=== PATIENT | male | born 1995 | race Caucasian/White ===

== ENCOUNTER 2019-07-21 22:55 | Emergency (ER) | payer SELFPAY ==
[~2019-07-21] VITALS: Ht 182.9 cm; Wt 77.0 kg
[2019-07-21 23:30] VITALS: BP 117/68
== END 2019-07-21 23:52 | disposition home or self-care (01) ==
LOC: ER 22:59
DX: T40.601A Poisoning by unspecified narcotics, accidental (unintentional), initial encounter (principal); G93.40 Encephalopathy, unspecified; F17.200 Nicotine dependence, unspecified, uncomplicated; F11.10 Opioid abuse, uncomplicated; Y92.89 Other specified places as the place of occurrence of the external cause
CPT/HCPCS: 99283; Z7610

== ENCOUNTER 2019-07-25 12:14 | Emergency (ER) | payer SELFPAY ==
[~2019-07-25] VITALS: Ht 177.8 cm; Wt 77.0 kg
[2019-07-25] MEDS ORDERED: SODIUM CHLORIDE 0.9% 1,000 ML IV ONE (12:48)
[2019-07-25] MEDS ORDERED: ONDANSETRON HCL 4MG/2ML INJ IV STA (12:48)
[2019-07-25] MEDS ORDERED: KETOROLAC 30MG/ML VIAL IV STA (12:48)
[2019-07-25 12:55] LABS: BASOPHILS % 0.1 % (0.0-2.0); EOSINOPHILS % 0.1 % (0.0-5.0); HEMATOCRIT. 46.7 % (42.0-52.0); HEMOGLOBIN. 15.6 g/dL (14.0-18.0); LYMPHOCYTES % 7.1 % (20.0-50.0); MEAN CORPUSCULAR HEMOGLOBIN 30.7 pg (28.0-32.0); MEAN CORPUSCULAR VOLUME 91.8 fL (80.0-94.0); MEAN PLATELET VOLUME 7.1 fl (7.4-10.4); MONOCYTES % 6.1 % (2.0-8.0); NEUTROPHILS % 86.6 % (40.0-76.0); PLATELET 220 x1000/uL (130-400); RED BLOOD CELL COUNT 5.08 mill/uL (4.7-6.1); RED CELL DISTRIBUTION WIDTH 13.3 % (11.6-14.6)
[2019-07-25 13:01] LABS: CHLORIDE 104 mEq/L (98-107)
[2019-07-25 13:05] LABS: ETHANOL BLOOD < 10 mg/dL
[2019-07-25 15:21] LABS: *AMPHETAMINES SCREEN URINE NEGATIVE (NEGATIVE); CANNABINOID URINE SCREEN NEGATIVE (NEGATIVE); METHADONE URINE SCREEN NEGATIVE (NEGATIVE); PHENCYCLIDINE URINE SCREEN NEGATIVE (NEGATIVE)
[2019-07-25 15:22] LABS: *BARBITURATES SCREEN URINE NEGATIVE (NEGATIVE); *BENZODIAZEPINES SCREEN URINE NEGATIVE (NEGATIVE); *COCAINE SCREEN URINE NEGATIVE (NEGATIVE); OPIATES URINE SCREEN NEGATIVE (NEGATIVE)
[2019-07-25 15:48] VITALS: BP 125/72
== END 2019-07-25 15:51 | disposition home or self-care (01) ==
LOC: ER 12:22
DX: G89.29 Other chronic pain (principal); R41.82 Altered mental status, unspecified; R51 Headache; R00.0 Tachycardia, unspecified; F11.10 Opioid abuse, uncomplicated
CPT/HCPCS: 36415; 80053; 80305; 80320; 84484; 85025; 93005; 96361; 96374; 96375; 99284; J1885; J2405; J7030; G0480

== ENCOUNTER 2019-09-08 16:34 | Emergency (ER) | payer SELFPAY ==
[~2019-09-08] VITALS: Ht 177.8 cm; Wt 78.0 kg
[2019-09-08 18:04] LABS: *AMPHETAMINES SCREEN URINE NEGATIVE (NEGATIVE)
[2019-09-08 18:05] LABS: *BARBITURATES SCREEN URINE NEGATIVE (NEGATIVE); *BENZODIAZEPINES SCREEN URINE NEGATIVE (NEGATIVE); *COCAINE SCREEN URINE PRESUMTIVE POSITIVE (NEGATIVE); METHADONE URINE SCREEN NEGATIVE (NEGATIVE); OPIATES URINE SCREEN PRESUMTIVE POSITIVE (NEGATIVE); PHENCYCLIDINE URINE SCREEN NEGATIVE (NEGATIVE)
[2019-09-08 18:06] LABS: CANNABINOID URINE SCREEN NEGATIVE (NEGATIVE)
[2019-09-08 18:38] VITALS: BP 132/74
== END 2019-09-08 18:42 | disposition home or self-care (01) ==
LOC: ER 16:34
DX: T40.5X1A Poisoning by cocaine, accidental (unintentional), initial encounter (principal); T40.0X1A Poisoning by opium, accidental (unintentional), initial encounter; G92 Toxic encephalopathy; R03.0 Elevated blood-pressure reading, without diagnosis of hypertension; Y92.89 Other specified places as the place of occurrence of the external cause
CPT/HCPCS: 80305; 99283